=== PATIENT | male | born 1970 | race Caucasian/White ===

== ENCOUNTER 2025-03-05 18:50 | Emergency (ER) | payer OTHER ==
[~2025-03-05] VITALS: Ht 175.3 cm; Wt 93.0 kg
[2025-03-05] MEDS ORDERED: HYDROCODONE/ACETA 5/325 TAB PO ONE (20:45)
[2025-03-05 20:59] LABS: MCH 28.1 PG (25.7-32.2); MCHC 33.6 g/dL (32.3-36.5); MCV 83.6 fL (79.0-92.2); RBC 4.88 M/uL (4.63-6.08)
[2025-03-05 21:11] LABS: BANDS, MANUAL DIFF 3; BASOPHILS, MANUAL DIFF 1; EOSINOPHILS, MANUAL DIFF 2; LYMPHOCYTES, MANUAL DIFF 51; MONOCYTES, MANUAL DIFF 4; NEUTROPHILS, MANUAL DIFF 39
[2025-03-05 21:14] LABS: ALT (SGPT) 21.0 U/L (14-59); AST (SGOT) 13.0 U/L (15-37); GLOMERULAR FILTRATION RATE,EST 74.0 mL/min (>60); PROTEIN, TOTAL 7.0 g/dL (6.4-8.2); UREA NITROGEN 21.0 mg/dL (7-18)
[2025-03-05 21:42] VITALS: BP 120/78
--- NOTE | 2025-03-08 10:41 | EKG ---
[facility] [address] [facility] [address] [place] [address] Signed Sinus rhythm with 1st degree AV block Nonspecific T wave abnormality Abnormal ECG No previous ECGs available Confirmed by Sagar Morales DO ([id number]) on 03/08/2025 10:41:02 AM Electronically Signed By: SAGAR MORALES DO 03/08/25 104 PATIENT NAME: JERONIMOSEN SKINNER Electrocardiogram DATE OF : 72 PHYSICIAN: SAGAR MORALES DO REPORT #: [id number] REPORT IS CONFIDENTIAL AND NOT TO BE RELEASED WITHOUT AUTHORIZATION
== END 2025-03-05 21:44 | disposition home or self-care (01) ==
LOC: ED 18:50
PROVIDERS: Emergency Medicine
DX: R55 Syncope and collapse (principal); R19.7 Diarrhea, unspecified; D72.829 Elevated white blood cell count, unspecified; S90.31XA Contusion of right foot, initial encounter; W22.8XXA Striking against or struck by other objects, initial encounter; Z95.0 Presence of cardiac pacemaker
CPT/HCPCS: 36415; 73630; 80053; 85025; 93005; 93010; 99284